=== PATIENT | male | born 1995 | race African-American/Black ===

== ENCOUNTER 2022-03-17 00:45 | Emergency (ER) | payer SELFPAY ==
[2022-03-17 01:11] LABS: Hemoglobin 12.7 g/dL (14.0-18.0); Mean Corpuscular HGB CONC 34.6 g/dL (32.0-36.0); Mean Corpuscular Hemoglobin 27.6 pg (27.0-31.0); Mean Corpuscular Volume 79.9 fL (78.0-98.0); Platelet Count 178 thou/uL (130-400); RBC Distribution Width 12.8 % (11.5-14.5); Red Blood Cell (RBC) Count 4.61 mill/uL (4.70-6.10); White Blood Cell (WBC) Count 9.6 thou/uL (4.8-10.8)
[2022-03-17 01:12] LABS: PTT 24.4 sec (22.9-36.1); Prothrombin Time 13.4 sec (12.0-14.7)
[2022-03-17 01:13] LABS: ALT (SGPT) 12 U/L (8-55); AST (SGOT) 16 U/L (5-34); Albumin 4.3 g/dL (3.5-5.0); Alkaline Phosphatase 57 U/L (40-110); Anion Gap 13 mmol/L (10-20); BUN (Urea Nitrogen) 11 mg/dL (8.9-20.6); Bilirubin, Total 0.5 mg/dL (0.2-1.2); Calc. Creatinine Clearance 0 mL/min (70-130); Carbon Dioxide 24 mmol/L (22-29); Chloride 110 mmol/L (98-107); Globulin 2.4 g/dL (2.4-3.5); Glucose 99 mg/dL (70-105); Potassium 3.3 mmol/L (3.5-5.1); Protein, Total 6.7 g/dL (6.0-8.3); Sodium 144 mmol/L (136-145)
[2022-03-17 01:24] LABS: Eosinophils 1 % (0-10); Lymphocytes 75 % (21-51); MDiff Complete? YES; Monocytes 4 % (0-10); Neutrophil 20 % (42-75)
[2022-03-17] MEDS ORDERED: Ondansetron PF 4 MG/2 ML Vial ONE (01:27)
[2022-03-17] MEDS ORDERED: Morphine 4 MG/ML VIAL ONE (01:27)
== END 2022-03-17 02:10 | disposition home or self-care (01) ==
LOC: ERS 00:45
DX: S72.431A Displaced fracture of medial condyle of right femur, initial encounter for closed fracture (principal); S82.131A Displaced fracture of medial condyle of right tibia, initial encounter for closed fracture; S81.801A Unspecified open wound, right lower leg, initial encounter; W34.00XA Accidental discharge from unspecified firearms or gun, initial encounter
CPT/HCPCS: 36415; 80053; 83605; 85025; 85610; 85730; 86850; 86900; 86901; 90471; 96365; 96375; 99292; G0390; J2270; J2405